=== PATIENT | female | born 1980 | race Caucasian/White ===

== ENCOUNTER 2016-12-13 16:29 | Inpatient (IN) | payer OTHER ==
[2016-12-13] MEDS ORDERED: Sodium Chloride 0.9% 1,000 ML PRIMARY IV ONE ×4 (16:44→21:27)
[2016-12-13] MEDS ORDERED: KETOROLAC 30 MG/1 ML VIAL IVP ONE (16:44)
[2016-12-13] MEDS ORDERED: ONDANSETRON 4 MG/2 ML VIAL IVP ONE (16:44)
--- NOTE | 2016-12-13 16:50 | PDOC ---
Gen Adult / Medical Screen HPI - General Chief Complaint: Genitourinary Complaint Stated Complaint: fever,chills, flank pain Date Seen by Provider: 12/13/16 Time Seen by Provider: 16:45 Source: POSITIVE: Patient Exam Limitations: POSITIVE: No limitations Nurse's Notes Reviewed & Considered: Yes - Indicators Temperature Between 95 and 101 Degrees: No (104) Respirations Between 12 and 20: Yes Blood Pressure Between 100-165 (sys) and 60-100 ([place]): Yes Pulse Range Between 60-105 (100 for age > 60 years): Yes Severe Pain (Greater than 5/10 Reported): No Chest or Abdominal Pain: Yes (abdominal cramping) Inability to Walk: No Pt Reports Active High Risk Cond. (TB/Hepatitis/HIV/Chemo): No Abnormal Mental Status: No - History of Present Illness Initial Comments: This is a very pleasant 36-year-old female who comes in today with a fever of 104, myalgias, nausea with vomiting. Patient's symptoms began on . Her initial symptoms were right shoulder pain exacerbation. She has chronic right shoulder pain from a injury. By night she had developed fever, myalgias, nausea vomiting and diarrhea. She was seen by her primary care physician earlier today and diagnosed with a urinary tract infection. She was started on Bactrim but has not taken her first dose yet. She comes in now because of worsening symptoms. In addition to the above she has headache, but denies sore throat, cough, shortness of breath, chest pain, no rashes. Body Location Affected: REPORTS: Abdomen Timing: REPORTS: Constant Duration: >24 hours Similar Symptoms Previously: No Recent Care Received: REPORTS: Recently Seen (Seen this morning by primary care , started on Bactrim DS but has not taken her first dose yet.) Any Prior Injuries Related to Current Complaint?: No - Patient Home Medications Home Medications: Home Medications Multivitamin Tab [ Plus Tab] 1 tab PO DAILY tab 08/28/14 Sertraline HCl [Zoloft] 1 tab PO DAILY #30 tab 11/01/16 Sulfamethoxazole/Trimethoprim [Sulfamethoxazole-Tmp Ds Tablet] 1 tab PO BID #14 tab 12/13/16 - Patient Allergies Allergies/Adverse Reactions: Allergies Allergy/AdvReac Type Severity Reaction Status Date / Time No Known Allergies Allergy Verified 12/13/16 16:38 Past Medical History - heen HEENT History: Denies History Cardiovascular History: Denies History Respiratory History: Denies History Gastrointestinal History: Denies History Genitourinary History: Denies History Endocrine History: Denies History Musculoskeletal History: Denies History Prosthesis or Implant: No Neurological History: Denies History Blood Disorders: Denies History Psychiatric History: Denies History History of Sexually Transmitted Diseases: No Cancer History: Denies History History of MDRO: No History of Other Communicable Diseases: No Alcohol Use: Rarely Substance Use Type: None Previous Surgical History: No Significant Family History: No pertinent family hx ROS - Limitations ROS Limitations: No Limitations Constitution: REPORTS: Chills, Fever Cardiovascular: REPORTS: Denies Cardiac Symptoms Respiratory: REPORTS: Denies Resp Symptoms Neurological: REPORTS: Headache Gastrointestinal: REPORTS: Abdominal Pain, Nausea, Vomitting, Diarrhea Endocrine: REPORTS: Fatigue Musculoskeletal: REPORTS: Back Pain (Bilateral CVA pain), Muscle Aches Genitourinary: REPORTS: Dysuria Eyes: REPORTS: Denies Symptoms ENT: REPORTS: Denies Symptoms Skin: REPORTS: Denies Skin Symptoms Lympathic: REPORTS: Denies Lympathic Symptoms Immunologic: POSITIVE: Denies Symptoms Psychiatric: POSITIVE: Denies Psych Symptoms Gen Adult/Medical Screen Exam - General Appearance General Appearance: POSITIVE: Alert, Cooperative, No Evidence of Trauma, Lethargic - HEENT HEENT: POSITIVE: Head Inspection Nml, Eyes Inspection Nml, Ears Inspection Nml, Nose Inspection Nml, Oral/Dental Inspect. Nml, Pharynx Inspect. Nml, PERRL, EOMI - Pupils Pupil Size: 4 mm: Bilateral - Neck Neck: POSITIVE: Normal Inspection, Thyroid Normal - Respiratory Respiratory: POSITIVE: No Respiratory Distress, Breath Sounds Normal, Chest Non- Tender - Cardiovascular Cardiovascular: POSITIVE: Regular Rate & Rhythm, No Murmur, No Gallop, PMI Normal - Abdomen Abdomen: Soft: (All Quadrants), Denies Tenderness: (LUQ), (RLQ), (LLQ), No Hepatomegaly: (All Quadrants), No Guarding: (All Quadrants), No Rebound: (All Quadrants), No Palpable Pulse: (All Quadrants), No Palpabale Mass: (All Quadrants), No Distention: (All Quadrants), No Rigidity: (All Quadrants), Tenderness Noted: (RUQ) - Back Back: POSITIVE: CVA Tenderness (Bilateral) - Neurological / Psychological Mental Status: POSITIVE: Mood Normal, Affect Normal Orientation: POSITIVE: Oriented x 3 - Skin Skin: POSITIVE: Normal Color, Dry, No Rash, Warmth - Extremities Extremity: Non-Tender: (All Extremities), Normal ROM: (All Extremities), Normal Inspection: (All Extremities) Gen Adlt/Medical Scrn Progress - Results Reviewed by me Xrays/CTs/US Reviewed by me: Yes Discussed with Radiologist: Yes Lab Results Reviewed: Yes Lab Results:: Laboratory Results 12/13/16 12/13/16 12/13/16 Range/Units 16:56 17:00 18:10 WBC 5.85 (4.8-10.8) 10^3/uL RBC 3.53 L (4.20-5.40) 10^6/uL Hgb 11.2 L (12.0-16.0) g/dL Hct 33.6 L (37.0-47.0) % MCV 95.2 (81-99) FL MCH 31.7 H (27-31) PG MCHC 33.3 (33-37) g/dL RDW Std Deviation 43.7 (39-50) fL RDW Coeff of [place] 13.1 (11.5-14.5) % Plt Count 204 (140-350) 10*3/uL MPV 9.3 (7.4-12.2) FL Immature Gran % (Auto) 0.2 (0-5) % Neut % (Auto) 73.8 (50-80) % Lymph % (Auto) 10.8 (10-50) % [place] % (Auto) 14.0 (5-15) % Eos % (Auto) 1.0 (0-8) % Baso % (Auto) 0.2 (0-1) % Immature Gran # (Auto) 0.01 10*3/UL Neut # (Auto) 4.32 10*3/UL Lymph # (Auto) 0.63 10*3/uL [place] # (Auto) 0.82 H (0.3-0.8) 10*3/UL Eos # (Auto) 0.06 10*3/UL Baso # (Auto) 0.01 10*3/UL WBC Morphology Comment Normal morphology (NORM) Plt Morphology Comment Normal morphology (NORM) RBC Morph Comment Normal morphology (NORM) Sodium 136 (135-145) meq/L Potassium 3.5 L (3.8-5.2) meq/L Chloride 103 (98-112) meq/L Carbon Dioxide 21 L (23-33) meq/L Anion Gap 12 (5-20) BUN 9 (7-22) mg/dL Creatinine 0.7 (0.50-1.20) mg/dL Estimated GFR > 60 (>60 ml/min/1.73m(2)) BUN/Creatinine Ratio 12.85 (6-20) Glucose 106 (78-110) mg/dL Calculated Osmolality 280.0 (267-292) mOsm/kg Lactic Acid 1.0 (0.70-2.10) MMOL/L Calcium 8.6 L (8.7-10.7) mg/dL Magnesium 1.6 (1.6-2.4) mg/dL Total Bilirubin 0.3 (0.3-1.2) mg/dL AST 39 (8-39) IU/L ALT 46 (9-52) IU/L Alkaline Phosphatase 65 (38-126) IU/L Total Protein 6.2 (6.1-8.0) g/dL Albumin 3.5 (3.5-4.8) g/dL Globulin 2.7 (2.50-4.10) g/dL Albumin/Globulin Ratio 1.20 L (1.3-2.0) mg/g Serum HCG, Qual Negative Ur Collection Type Voided specimen Urine Color Yellow Urine Clarity Cloudy (CLEAR) Urine pH 7.0 (5.0-8.5) Ur Specific [place] 1.010 (1.005-1.030) Urine Protein 100 (NEG) mg/dl Urine Glucose (UA) Negative (NEG) mg/dL Urine Ketones Negative (NEG) Urine Occult Blood Moderate H (NEG) Urine Nitrate Negative (NEG) Urine Bilirubin Negative (NEG) Urine Urobilinogen 0.2 (0.2) EU/dL Ur Leukocyte Esterase Moderate (NEG) Urine RBC 10-15 (NONE) /hpf Urine WBC 25-50 (NONE) Ur Squamous Epith Cells Few (NONE) Ur Renal Epithelial Cell None (NONE) Urine Crystals None Urine Bacteria None (NONE) Urine Casts None (NONE) Urine Mucus None (NONE) Urine Trichomonas None (NONE) Urine Yeast None (NONE) Ur Culture Indicated? Culture set - Patient's Progress Pain Medication Addressed: POSITIVE: Yes Re-Examine Time: 20:30 Status: POSITIVE: Improved MDM / ED Course: Patient was examined, an IV established with blood drawn and sent to the lab for studies, radiographic examinations were obtained. Patient received IV normal saline, Toradol, morphine, Zofran and 2 g of Rocephin. She also received oral Tylenol. Findings: CBC shows an unremarkable white count, metabolic panel shows potassium of 3.7, test is negative, chest x-ray shows a normal chest radiograph, CT scan of her abdomen shows stone in the right renal parenchyma that is punctate. Urinalysis shows 25-50 WBCs and moderate leukocyte esterase. Blood cultures are pending. Assessment: Fever with probable early pyelonephritis and nephrolithiasis. Plan: Admission for IV antibiotics. Patient Care Time - Estimated PCT Patient Care Time (In Minutes): 30 Vital Signs - Recent Vital Signs Vital Signs: Vital Signs (Last 8 hours) Temp Pulse Resp BP Pulse Ox 12/13/16 16:29 104.1 F H 100 18 140/65 97 - VS Reviewed Vital Signs Reviewed: Yes Discharge Clinical Impression: Urinary tract infectious disease Discharge Disposition: Admit to Inpatient Condition: Stable Date Decision to Admit to Inpatient: 12/13/16 Time Decision to Admit to Inpatient: 20:30
[2016-12-13 16:59] LABS: BASOPHILS # (AUTO) 0.01 10*3/UL; BASOPHILS % (AUTO) 0.2 % (0-1); EOSINOPHILS # (AUTO) 0.06 10*3/UL; HEMATOCRIT 33.6 % (37.0-47.0); HEMOGLOBIN 11.2 g/dL (12.0-16.0); LYMPHOCYTES # (AUTO) 0.63 10*3/uL; MEAN CORPUSCULAR HEMOGLOBIN 31.7 PG (27-31); MEAN CORPUSCULAR HGB CONC 33.3 g/dL (33-37); MEAN CORPUSCULAR VOLUME 95.2 FL (81-99); MEAN PLATELET VOLUME 9.3 FL (7.4-12.2); MONOCYTES # (AUTO) 0.82 10*3/UL (0.3-0.8); NEUTROPHILS # (AUTO) 4.32 10*3/UL; NEUTROPHILS % (AUTO) 73.8 % (50-80); RED BLOOD COUNT 3.53 10^6/uL (4.20-5.40)
[2016-12-13 17:01] LABS: PLATELET MORPHOLOGY COMMENT NORMAL MORPHOLOGY (NORM); RBC MORPHOLOGY COMMENT NORMAL MORPHOLOGY (NORM); WBC MORPHOLOGY COMMENT NORMAL MORPHOLOGY (NORM)
[2016-12-13] MEDS ORDERED: MORPHINE SULFATE 2 MG/1 ML IVP ONE ×2 (17:03→19:46)
[2016-12-13 17:24] LABS: BLOOD UREA NITROGEN 9 mg/dL (7-22); BUN/CREATININE RATIO 12.85 (6-20); CALCIUM 8.6 mg/dL (8.7-10.7); EST GLOMERULAR FILTRATION > 60 (>60 ml/min/1.73m(2)); MAGNESIUM 1.6 mg/dL (1.6-2.4); SERUM ALBUMIN 3.5 g/dL (3.5-4.8)
[2016-12-13 18:20] LABS: CLARITY,URINE CLOUDY (CLEAR); COLOR,URINE YELLOW; PROTEIN,URINE 100 mg/dl (NEG); URINE SAMPLE TYPE VOIDED SPECIMEN
[2016-12-13 18:21] LABS: BILIRUBIN,URINE NEGATIVE (NEG); GLUCOSE, URINE (UA) NEGATIVE (NEG); NITRATE,URINE NEGATIVE (NEG); OCCULT BLOOD,URINE MODERATE (NEG); UROBILINOGEN,URINE 0.2 EU/dL (0.2)
[2016-12-13 18:22] LABS: SQUAMOUS EPITHELIAL CELL,UR FEW; WBC,URINE 25-50
[2016-12-13] MEDS ORDERED: cefTRIAXone Inj 2 GM in Sodium Chloride 0.9% 100 ML IV ONE (18:51)
--- NOTE | 2016-12-13 20:12 | DI ---
XR CXR 2VW PA/LAT,12/13/2016 4:44 PM: Clinical History: Fever Previous Exam: None at this facility. Findings: PA and lateral views of the chest are obtained, and demonstrate clear lungs. The cardiomediastinum an d bony thorax are unremarkable. Impression: Normal chest.
--- NOTE | 2016-12-13 20:16 | DI ---
CT ABD W/WO CN AND PELVIS W/CN,12/13/2016 6:42 PM: Clinical History: Fever, hematuria and bilateral costovertebral angle pain. Previous Exam: None at this facility. Findings: Multiple helically acquired CT images are obtained through the abdomen and pelvis both before and aft er the intravenous administration of contrast, and demonstrate clear lung bases. The cardiomediastinum is unremarkable. The liver, spleen, pancreas, adrenals and left kidney are unremarkable. There is a punctate parenchym al stone within the right kidney, and the right kidney is in a transverse lie. The gallbladder is decompressed, and therefore not well evaluated. There is a large amount of dried stool throughout the colon. There is no retroperitoneal nor mesenteric lymphadenopathy. The uterus, ovaries and urinary bladder are unremarkable. There is some free fluid within the deep pelvis. Impression: 1. No obstructive uropathy. 2. Punctate stone within the right renal parenchyma. 3. Free fluid within the deep pelvis. This is a nonspecific finding, and is most likely secondary to a gynecological source.
[2016-12-13] MEDS ORDERED: ACETAMINOPHEN 500 MG TABLET PO ONE (20:57)
[2016-12-13] MEDS ORDERED: LIDOCAINE W/ SODIUM BICARB 0.5 ML SYR SUBD PRN (21:27)
--- NOTE | 2016-12-13 22:06 | PDOC ---
History and Physical - History of Present Illness Date and Time of Service: 12/13/2016 10 PM Chief Complaint: Fever, back and body aches and chills of few days duration History of Present Illness: This is a 36 years old female with no significant past medical history who came into the hospital with history of fever, body aches and nausea and vomiting of few days duration. Her symptoms she said started last week started with right shoulder and neck pain she thought that it was musculoskeletal on Tuesday she took some Percocet and Xanax. The next day she did vomit did have body aches and did not have a good appetite. She went to her primary who prescribed Bactrim however she didn't have the time to pick it up and she came into the ER because she wasn't feeling well feeling hot and chills and evaluation suggested pyelonephritis she was given fluids and antibiotics and was admitted. She did report the mid back pain and some radiation to the right flank. She said she has only dysuria when she wipes but otherwise no frequency or dysuria other than what she described. There is no hematuria. No history of previous urinary tract infections. Past Medical History Medical History: Depression Family History: Reviewed an Not Pertinent Past Social History: Doesn't smoke, doesn't drink no drugs. 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[employer] Tobacco Use: Never Smoker Substance Use Type: None Alcohol Use: Occasionally Medication / Allergies Home Medications: Home Medications Medication Instructions Recorded Confirmed Type Multivitamin Tab 1 tab PO DAILY tab 08/28/14 12/13/16 History [ Plus Tab] Sertraline HCl [Zoloft] 1 tab PO DAILY #30 tab 11/01/16 12/13/16 Clinic Sulfamethoxazole/Trimethoprim 1 tab PO BID #14 tab 12/13/16 12/13/16 Clinic [Sulfamethoxazole-Tmp Ds Tablet] Allergies/Adverse Reactions: Allergies Allergy/AdvReac Type Severity Reaction Status Date / Time No Known Allergies Allergy Verified 12/14/16 07:15 Review of Systems - Review of Systems All Systems: Reviewed & No Additional Complaints Except as Stated Exam - Vitals Vital Signs: Vital Signs Temperature 103.0 F Temperature Source Oral Pulse Rate [Pulse Oximeter 91 Right] Pulse Rate 93 Respiratory Rate 16 Blood Pressure [Left Arm] 121/57 Blood Pressure 112/51 Pulse Ox 99 Oxygen Delivery Method Room Air Height 5 ft 5 in Weight 153 lb 6.4 oz - General Additional General Exam Details: Initially she was dry heaving, looks sick - Head Head Exam: POSITIVE: Normal Inspection - Eye Eye Exam: POSITIVE: Normal Appearance - ENT ENT Exam: POSITIVE: Mucous Membranes Dry - Neck Neck Exam: POSITIVE: Normal Inspection - Respiratory Respiratory Exam: POSITIVE: Clear to Auscultation - Bilaterally - Cardiovascular Cardiovascular Exam: POSITIVE: RRR - GI/Abdominal GI/Abdominal Exam: POSITIVE: Normal Bowel Sounds, Non Tender, Non Distended, Soft Additional GI/Abdominal Exam Details: CVA tenderness noted especially on the right side, some minimal tenderness in the right flank - Rectal Rectal Exam: POSITIVE: Deferred - External Exam: POSITIVE: Deferred - Extremities Extremities Exam: POSITIVE: Normal Inspection - Back Back Exam: POSITIVE: Normal Inspection - Neurological Neurological Exam: POSITIVE: Alert, Oriented x 3, CN II-XII Intact - Psychiatric Psychiatric Exam: POSITIVE: Normal Affect - Integumentary Integumentary Exam: POSITIVE: Warm Results - Labs CBC and BMP: 12/14/16 05:08 12/14/16 05:08 - Imaging Status: Report Reviewed by Me (Chest x-ray is negative, CT showed punctuate calcification in the right kidney) Assessment and Plan - Patient Problems (1) Sepsis Current Visit: Yes Status: Acute Comment: This is based on the fever and the pulse rate more than 90 when she came in, with a presumed urinary tract infection. We gave her a bolus of fluid continue with fluid and will continue antibiotics will put her on cefepime because of sepsis (2) Pyelonephritis Current Visit: Yes Status: Acute Comment: This is the likely the cause of sepsis, continue with fluid and IV antibiotics will wait for culture results
[2016-12-13] MEDS: Cefepime Inj 1 GM in Sodium Chloride 0.9% 100 ML IV SCH (22:54)
[2016-12-13] MEDS: NORMAL SALINE 10 ML SYRINGE FLUSH IVP PRN (22:54)
[2016-12-13] MEDS: KETOROLAC 30 MG/1 ML VIAL IVP PRN (22:54)
[2016-12-14] MEDS: MORPHINE SULFATE 2 MG/1 ML IVP PRN ×2 (03:49→07:52)
[2016-12-14] MEDS: NORMAL SALINE 10 ML SYRINGE FLUSH IVP PRN ×4 (03:49→11:41)
[2016-12-14] MEDS: KETOROLAC 30 MG/1 ML VIAL IVP PRN ×2 (05:10→11:41)
[2016-12-14] MEDS: Cefepime Inj 1 GM in Sodium Chloride 0.9% 100 ML IV SCH ×3 (05:10→22:16)
[2016-12-14] MEDS: ACETAMINOPHEN 325 MG TABLET PO PRN (05:16)
[2016-12-14 05:22] LABS: BASOPHILS # (AUTO) 0.01 10*3/UL; BASOPHILS % (AUTO) 0.2 % (0-1); EOSINOPHILS # (AUTO) 0.09 10*3/UL; EOSINOPHILS % (AUTO) 1.4 % (0-8); HEMATOCRIT 32.2 % (37.0-47.0); HEMOGLOBIN 10.4 g/dL (12.0-16.0); LYMPHOCYTES # (AUTO) 1.23 10*3/uL; MEAN CORPUSCULAR HGB CONC 32.3 g/dL (33-37); MEAN CORPUSCULAR VOLUME 96.1 FL (81-99); MEAN PLATELET VOLUME 9.3 FL (7.4-12.2); MONOCYTES # (AUTO) 1.09 10*3/UL (0.3-0.8); MONOCYTES % (AUTO) 17.1 % (5-15); NEUTROPHILS # (AUTO) 3.94 10*3/UL; NEUTROPHILS % (AUTO) 61.7 % (50-80); RED BLOOD COUNT 3.35 10^6/uL (4.20-5.40)
[2016-12-14 05:25] LABS: PLATELET MORPHOLOGY COMMENT NORMAL MORPHOLOGY (NORM); RBC MORPHOLOGY COMMENT NORMAL MORPHOLOGY (NORM); WBC MORPHOLOGY COMMENT NORMAL MORPHOLOGY (NORM)
[2016-12-14 05:31] LABS: BLOOD UREA NITROGEN 6 mg/dL (7-22); CALCIUM 7.7 mg/dL (8.7-10.7); EST GLOMERULAR FILTRATION > 60 (>60 ml/min/1.73m(2))
[2016-12-14] MEDS: Sertraline Tab 50 MG TAB PO SCH (08:00)
--- NOTE | 2016-12-14 08:13 | PDOC(PROG) ---
Date and Time of Service: 12/14/2016 8:10 AM Interval History: Subjective Feels better than when she came in, still sometimes have the chills did have some mild nausea earlier overall she feels about 50% better compared to when she came in. Objective : Data - Labs CBC and BMP: 12/14/16 05:08 12/14/16 05:08 Labs - Last 24 Hours: Laboratory Results 12/14/16 Range/Units 05:08 WBC 6.38 (4.8-10.8) 10^3/uL RBC 3.35 L (4.20-5.40) 10^6/uL Hgb 10.4 L (12.0-16.0) g/dL Hct 32.2 L (37.0-47.0) % MCV 96.1 (81-99) FL MCH 31.0 (27-31) PG MCHC 32.3 L (33-37) g/dL RDW Std Deviation 44.3 (39-50) fL RDW Coeff of [place] 13.1 (11.5-14.5) % Plt Count 172 (140-350) 10*3/uL MPV 9.3 (7.4-12.2) FL Immature Gran % (Auto) 0.3 (0-5) % Neut % (Auto) 61.7 (50-80) % Lymph % (Auto) 19.3 (10-50) % [place] % (Auto) 17.1 H (5-15) % Eos % (Auto) 1.4 (0-8) % Baso % (Auto) 0.2 (0-1) % Immature Gran # (Auto) 0.02 10*3/UL Neut # (Auto) 3.94 10*3/UL Lymph # (Auto) 1.23 10*3/uL [place] # (Auto) 1.09 H (0.3-0.8) 10*3/UL Eos # (Auto) 0.09 10*3/UL Baso # (Auto) 0.01 10*3/UL WBC Morphology Comment Normal morphology (NORM) Plt Morphology Comment Normal morphology (NORM) RBC Morph Comment Normal morphology (NORM) Sodium 139 (135-145) meq/L Potassium 3.9 (3.8-5.2) meq/L Chloride 109 (98-112) meq/L Carbon Dioxide 23 (23-33) meq/L Anion Gap 7 (5-20) BUN 6 L (7-22) mg/dL Creatinine 0.8 (0.50-1.20) mg/dL Estimated GFR > 60 (>60 ml/min/1.73m(2)) BUN/Creatinine Ratio 7.50 (6-20) Glucose 114 H (78-110) mg/dL Calculated Osmolality 286.0 (267-292) mOsm/kg Calcium 7.7 L (8.7-10.7) mg/dL Objective : Exam - General General Appearance: No Acute Distress, Cooperative - Head Head Exam: Normal Inspection, Atraumatic - Eye Eye Exam: Normal Appearance - ENT ENT Exam: Normal Exam - Neck Neck Exam: Normal Inspection - Respiratory Respiratory Exam: Clear to Auscultation - Bilaterally - Cardiovascular Cardiovascular Exam: RRR - GI/Abdominal GI/Abdominal Exam: Normal Bowel Sounds, Non Distended, Soft Additional GI/Abdominal Exam Details: Some mild costovertebral angle tenderness, mild tenderness on the right flank. - Rectal Rectal Exam: Deferred - External Exam: Deferred - Extremities Extremities Exam: Normal Inspection - Back Back Exam: Normal Inspection - Neurological Neurological Exam: Alert, Oriented x 3, CN II-XII Intact, Speech Intact / Clear , Moves All Extremities Equally - Psychiatric Psychiatric Exam: Normal Affect - Integumentary Integumentary Exam: Normal Color Assessment and Plan - Patient Problems (1) Sepsis Current Visit: Yes Status: Acute Comment: This is improved , continue current antibiotic and start cutting back on the IV fluid. (2) Pyelonephritis Current Visit: Yes Status: Acute Comment: Continue same antibiotics will wait for culture results.
[2016-12-14] MEDS ORDERED: PANTOPRAZOLE 40 MG TABLET PO SCH ×2 (08:15→21:00)
[2016-12-14] MEDS ORDERED: PSYLLIUM SEED 1 EACH PACKET PO PRN (09:00)
[2016-12-14] MEDS: oxyCODONE-ACETAMINOPHEN 5-325 TAB PO PRN ×3 (11:42→20:33)
[2016-12-14] MEDS: PANTOPRAZOLE 40 MG TABLET PO SCH (20:33)
[2016-12-14] MEDS ORDERED: Sodium Chloride 0.9% 100 ML IV ONE (22:07)
[2016-12-15] MEDS: oxyCODONE-ACETAMINOPHEN 5-325 TAB PO PRN ×4 (02:22→20:50)
[2016-12-15] MEDS ORDERED: Sodium Chloride 0.9% 100 ML IV ONE (05:07)
[2016-12-15] MEDS: Cefepime Inj 1 GM in Sodium Chloride 0.9% 100 ML IV SCH ×2 (05:23→14:18)
[2016-12-15 05:38] LABS: BASOPHILS # (AUTO) 0.01 10*3/UL; BASOPHILS % (AUTO) 0.2 % (0-1); EOSINOPHILS # (AUTO) 0.09 10*3/UL; EOSINOPHILS % (AUTO) 1.4 % (0-8); HEMATOCRIT 30.4 % (37.0-47.0); HEMOGLOBIN 9.8 g/dL (12.0-16.0); LYMPHOCYTES # (AUTO) 1.22 10*3/uL; MEAN CORPUSCULAR HEMOGLOBIN 31.2 PG (27-31); MEAN CORPUSCULAR HGB CONC 32.2 g/dL (33-37); MEAN CORPUSCULAR VOLUME 96.8 FL (81-99); MEAN PLATELET VOLUME 9.6 FL (7.4-12.2); MONOCYTES # (AUTO) 0.86 10*3/UL (0.3-0.8); MONOCYTES % (AUTO) 13.3 % (5-15); NEUTROPHILS # (AUTO) 4.26 10*3/UL; NEUTROPHILS % (AUTO) 65.9 % (50-80); RED BLOOD COUNT 3.14 10^6/uL (4.20-5.40)
[2016-12-15 05:40] LABS: PLATELET MORPHOLOGY COMMENT NORMAL MORPHOLOGY (NORM); RBC MORPHOLOGY COMMENT NORMAL MORPHOLOGY (NORM); WBC MORPHOLOGY COMMENT NORMAL MORPHOLOGY (NORM)
[2016-12-15 05:50] LABS: BLOOD UREA NITROGEN 8 mg/dL (7-22); BUN/CREATININE RATIO 11.42 (6-20); CALCIUM 7.4 mg/dL (8.7-10.7); EST GLOMERULAR FILTRATION > 60 (>60 ml/min/1.73m(2))
[2016-12-15] MEDS ORDERED: PANTOPRAZOLE 40 MG TABLET PO SCH (07:00)
[2016-12-15] MEDS: Sertraline Tab 50 MG TAB PO SCH (08:07)
[2016-12-15] MEDS: PANTOPRAZOLE 40 MG TABLET PO SCH (08:08)
--- NOTE | 2016-12-15 08:17 | PDOC(PROG) ---
Date and Time of Service: 12/15/2016 8:17 AM Interval History: Subjective Complain from abdominal pain now mainly in the epigastric area, which is also tender she did not have a bowel movement yet last time she had a bowel movement she said it was Tuesday. She is passing gas. Objective : Data - Labs CBC and BMP: 12/15/16 05:31 12/15/16 05:31 Labs - Last 24 Hours: Laboratory Results 12/15/16 Range/Units 05:31 WBC 6.46 (4.8-10.8) 10^3/uL RBC 3.14 L (4.20-5.40) 10^6/uL Hgb 9.8 L (12.0-16.0) g/dL Hct 30.4 L (37.0-47.0) % MCV 96.8 (81-99) FL MCH 31.2 H (27-31) PG MCHC 32.2 L (33-37) g/dL RDW Std Deviation 45.4 (39-50) fL RDW Coeff of [place] 13.3 (11.5-14.5) % Plt Count 175 (140-350) 10*3/uL MPV 9.6 (7.4-12.2) FL Immature Gran % (Auto) 0.3 (0-5) % Neut % (Auto) 65.9 (50-80) % Lymph % (Auto) 18.9 (10-50) % [place] % (Auto) 13.3 (5-15) % Eos % (Auto) 1.4 (0-8) % Baso % (Auto) 0.2 (0-1) % Immature Gran # (Auto) 0.02 10*3/UL Neut # (Auto) 4.26 10*3/UL Lymph # (Auto) 1.22 10*3/uL [place] # (Auto) 0.86 H (0.3-0.8) 10*3/UL Eos # (Auto) 0.09 10*3/UL Baso # (Auto) 0.01 10*3/UL WBC Morphology Comment Normal morphology (NORM) Plt Morphology Comment Normal morphology (NORM) RBC Morph Comment Normal morphology (NORM) Sodium 136 (135-145) meq/L Potassium 3.7 L (3.8-5.2) meq/L Chloride 108 (98-112) meq/L Carbon Dioxide 22 L (23-33) meq/L Anion Gap 6 (5-20) BUN 8 (7-22) mg/dL Creatinine 0.7 (0.50-1.20) mg/dL Estimated GFR > 60 (>60 ml/min/1.73m(2)) BUN/Creatinine Ratio 11.42 (6-20) Glucose 117 H (78-110) mg/dL Calculated Osmolality 280.0 (267-292) mOsm/kg Calcium 7.4 L (8.7-10.7) mg/dL Objective : Exam - General General Appearance: No Acute Distress, Cooperative, Thin - Head Head Exam: Normal Inspection - Eye Eye Exam: Normal Appearance - ENT ENT Exam: Normal Exam - Neck Neck Exam: Normal Inspection - Respiratory Respiratory Exam: Clear to Auscultation - Bilaterally - Cardiovascular Cardiovascular Exam: RRR - GI/Abdominal GI/Abdominal Exam: Normal Bowel Sounds Additional GI/Abdominal Exam Details: Abdomen is mildly distended there is tenderness in the epigastric area abdomen is soft. - Rectal Rectal Exam: Deferred - External Exam: Deferred - Extremities Extremities Exam: Normal Inspection - Back Back Exam: Normal Inspection - Neurological Neurological Exam: Alert, Oriented x 3, CN II-XII Intact, Moves All Extremities Equally - Psychiatric Psychiatric Exam: Normal Affect Assessment and Plan - Patient Problems (1) Sepsis Current Visit: Yes Status: Acute Comment: This is resolved (2) Pyelonephritis Current Visit: Yes Status: Acute Comment: The culture is growing gram-negative bacilli in the urine continue current antibiotics, hopefully will have identification today. (3) Abdominal pain Current Visit: Yes Status: Acute Comment: She is having more no abdominal pain more in the epigastric area, we DC 'd the Toradol last night I did talk to her last night and offered a CT she wanted to wait until today and since she continued to complain from same pain I think will do a CT of her abdomen today. We'll check a lipase level and LFT
[2016-12-15 10:48] LABS: SERUM ALBUMIN 2.6 g/dL (3.5-4.8)
[2016-12-15] MEDS: Sodium Chloride 0.9% 1,000 ML PRIMARY IV SCH ×2 (11:37→21:00)
[2016-12-15] MEDS: ONDANSETRON 4 MG/2 ML VIAL IVP PRN ×2 (12:56→21:06)
--- NOTE | 2016-12-15 15:33 | CONSULT ---
Consult Note - Consult Consult Date: 12/15/16 Reason for Consult: PreOp Consulation : General Surgery Requesting Physician: Dr. Hicks Primary Care Provider: Ariel Maurer MD - History of Present Illness History of Present Illness: This 28-year-old female who is been a 2 days ago with what appeared to be pyelonephritis. She had a CT scan that was consistent with this. In addition no other intra-abdominal pathology. They saw what appeared to be a normal appendix. Patient subsequently has developed mid epigastric pain. Subsequent CT scan shows that she has marked ascites. There is no evidence of free air. Appendix still does not appear to be the problem. Patient has had perinephric stranding. Patient states that she is still passing gas. Past Medical History Medical History: Depression Family History: Reviewed an Not Pertinent Past Social History: Doesn't smoke, doesn't drink no drugs. 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 [employer] Tobacco Use: Never Smoker Substance Use Type: None Alcohol Use: Occasionally Medication / Allergies Home Medications: Home Medications Medication Instructions Recorded Confirmed Type Multivitamin Tab 1 tab PO DAILY tab /12/0712/13/16 History [ Plus Tab] Sertraline HCl [Zoloft] 1 tab PO DAILY #30 tab 11/01/16 12/13/16 Clinic Sulfamethoxazole/Trimethoprim 1 tab PO BID #14 tab 12/13/16 12/13/16 Clinic [Sulfamethoxazole-Tmp Ds Tablet] Allergies/Adverse Reactions: Allergies Allergy/AdvReac Type Severity Reaction Status Date / Time No Known Allergies Allergy Verified 12/15/16 06:27 Exam - Vitals Vital Signs: Vital Signs Temperature 98.3 F Temperature Source Temporal Artery Scan Pulse Rate [Pulse Oximeter 61 Right] Pulse Rate 93 Respiratory Rate 16 Blood Pressure [Left Arm] 111/71 Blood Pressure 112/51 Pulse Ox 92 Oxygen Flow Rate 1 Oxygen Delivery Method Room Air Height 5 ft 5 in Weight 74.072 kg - General General Appearance: POSITIVE: Cooperative, Mild Distress - Eye Eye Exam: POSITIVE: PERRL, EOMI - GI/Abdominal GI/Abdominal Exam: POSITIVE: Firm, Distended, Guarding Results - Labs CBC and BMP: 12/15/16 05:31 12/15/16 05:31 Labs - Last 24 Hours: Laboratory Results 12/15/16 Range/Units 05:31 WBC 6.46 (4.8-10.8) 10^3/uL RBC 3.14 L (4.20-5.40) 10^6/uL Hgb 9.8 L (12.0-16.0) g/dL Hct 30.4 L (37.0-47.0) % MCV 96.8 (81-99) FL MCH 31.2 H (27-31) PG MCHC 32.2 L (33-37) g/dL RDW Std Deviation 45.4 (39-50) fL RDW Coeff of [place] 13.3 (11.5-14.5) % Plt Count 175 (140-350) 10*3/uL MPV 9.6 (7.4-12.2) FL Immature Gran % (Auto) 0.3 (0-5) % Neut % (Auto) 65.9 (50-80) % Lymph % (Auto) 18.9 (10-50) % Piatt % (Auto) 13.3 (5-15) % Eos % (Auto) 1.4 (0-8) % Baso % (Auto) 0.2 (0-1) % Immature Gran # (Auto) 0.02 10*3/UL Neut # (Auto) 4.26 10*3/UL Lymph # (Auto) 1.22 10*3/uL Piatt # (Auto) 0.86 H (0.3-0.8) 10*3/UL Eos # (Auto) 0.09 10*3/UL Baso # (Auto) 0.01 10*3/UL WBC Morphology Comment Normal morphology (NORM) Plt Morphology Comment Normal morphology (NORM) RBC Morph Comment Normal morphology (NORM) Sodium 136 (135-145) meq/L Potassium 3.7 L (3.8-5.2) meq/L Chloride 108 (98-112) meq/L Carbon Dioxide 22 L (23-33) meq/L Anion Gap 6 (5-20) BUN 8 (7-22) mg/dL Creatinine 0.7 (0.50-1.20) mg/dL Estimated GFR > 60 (>60 ml/min/1.73m(2)) BUN/Creatinine Ratio 11.42 (6-20) Glucose 117 H (78-110) mg/dL Calculated Osmolality 280.0 (267-292) mOsm/kg Calcium 7.4 L (8.7-10.7) mg/dL Total Bilirubin 0.3 (0.3-1.2) mg/dL Conjugated Bilirubin 0.00 (0.0-0.3) MG/DL Unconjugated Bilirubin 0 (0.0-1.1) mg/dL AST 84 H (8-39) IU/L ALT 88 H D (9-52) IU/L Alkaline Phosphatase 106 (38-126) IU/L Total Protein 5.5 L (6.1-8.0) g/dL Albumin 2.6 L (3.5-4.8) g/dL Lipase 28 (23-300) IU/L Assessment and Plan - Patient Problems (1) Abdominal pain Current Visit: Yes Status: Acute (2) Pyelonephritis Current Visit: Yes Status: Acute - Assessment / Plan Additional Assessment/Plan Details: Paraspinous really unsure why patient has developed ascites. The differential diagnosis does include a perforated peptic ulcer that has sealed itself. There could be a duodenal perforation. Patient still could have a missed appendicitis its retroperitoneal. Patient can at peritonitis secondary to her pyelonephritis. Also possibility of a ruptured ureter still has not been ruled out. At this point I switched her broad-spectrum antibiotic. I would make her nothing by mouth. And keep her on 40 mg of IV Protonix twice a day. Patient reevaluated in the a.m. If we still cannot get in any better patient may need a diagnostic laparoscopy.
--- NOTE | 2016-12-15 16:00 | DI ---
CT ABD W/CN AND PELVIS W/CN,12/15/2016 8:12 AM: Clinical History: Worsening abdominal pain. Previous Exam: December 23, 2016 Findings: Multiple helically acquired CT images are obtained through the abdomen and pelvis following the admin istration of intravenous contrast, and demonstrate new bilateral pleural effusions worse on the right than the left. There is some mild subsegmental atelectasis. There are new findings within the liver most consistent with periportal edema. The left kidney is normal. There is some heterogeneity of the right kidney consistent with pyelonephr itis. The spleen and pancreas are unremarkable. There is a small umbilical hernia. Impression: 1. Mild heterogeneity of the right kidney most consistent with pyelonephritis. 2. New large amount of ascites and periportal edema. 3. New bilateral pleural effusions larger on the right than the left. This confluence of findings is concerning for peritonitis and pyelonephritis.
[2016-12-15] MEDS: Piperacillin/Tazobactam Inj 3.375 GM in Sodium Chloride 0.9% 100 ML IV SCH ×2 (16:17→20:51)
[2016-12-15] MEDS: Pantoprazole Inj 40 MG in Normal Saline Flush 10 ML IVP SCH (20:51)
--- NOTE | 2016-12-15 22:35 | DI ---
US ABDOMEN LIMITED,12/15/2016 10:30 AM: Clinical History: New epigastric pain. Previous Exam: CT performed on the same date. Findings: Multiple grayscale and color Doppler sonographic images were obtained. I was present during the perfo rmance of this examination. The pancreas was normal. There is a large amount of abdominal ascites, and the liver was slightly enlarged measuring 20.1 cm i n long axis. The gallbladder wall measured 5 mm. There was diffuse epigastric pain making evaluation of a sonograp hic Garcia's sign very difficult. The common bile duct was prominent measuring 7 mm. The right kidney measured 12.4 cm in length with a normal sonographic appearance. Impression: 1. Diffuse ascites. 2. Mild prominence of the common bile duct without evidence of stones. 3. Thickened gallbladder wall is more likely due to the presence of ascites and 2 primary biliary pat hology.
[2016-12-16] MEDS: Sodium Chloride 0.9% 1,000 ML PRIMARY IV SCH ×2 (02:40→14:44)
[2016-12-16] MEDS: Piperacillin/Tazobactam Inj 3.375 GM in Sodium Chloride 0.9% 100 ML IV SCH ×3 (03:30→14:43)
[2016-12-16] MEDS: ONDANSETRON 4 MG/2 ML VIAL IVP PRN (04:40)
[2016-12-16] MEDS: oxyCODONE-ACETAMINOPHEN 5-325 TAB PO PRN (04:40)
[2016-12-16 05:40] LABS: HEMATOCRIT 28.8 % (37.0-47.0); HEMOGLOBIN 9.4 g/dL (12.0-16.0); MEAN CORPUSCULAR HEMOGLOBIN 31.3 PG (27-31); MEAN CORPUSCULAR HGB CONC 32.6 g/dL (33-37); MEAN PLATELET VOLUME 9.4 FL (7.4-12.2)
[2016-12-16 05:52] LABS: BLOOD UREA NITROGEN 8 mg/dL (7-22); BUN/CREATININE RATIO 13.33 (6-20); CALCIUM 7.3 mg/dL (8.7-10.7); EST GLOMERULAR FILTRATION > 60 (>60 ml/min/1.73m(2)); SERUM ALBUMIN 2.6 g/dL (3.5-4.8)
[2016-12-16 05:54] LABS: BAND NEUTROPHILS % 2 % (0-10); BASOPHILS % (MANUAL) 0 % (0-1); EOSINOPHILS % (MANUAL) 0 % (0-8); LYMPHOCYTES % (MANUAL) 21 % (10-50); MONOCYTES % (MANUAL) 0 % (0-12); NEUTROPHILS % (MANUAL) 77 % (50-80); PLATELET MORPHOLOGY COMMENT NORMAL MORPHOLOGY (NORM); RBC MORPHOLOGY COMMENT NORMAL MORPHOLOGY (NORM); WBC MORPHOLOGY COMMENT NORMAL MORPHOLOGY (NORM)
[2016-12-16 08:22] VITALS: RESP 18
--- NOTE | 2016-12-16 09:18 | PDOC(PROG) ---
Date and Time of Service: at 9:15 AM on 12/17/2015 Interval History: Patient states that she feels about 25% better. She still pain when she ambulates. Patient did get up and take a shower this morning Objective : Data - Labs CBC and BMP: 12/16/16 05:33 12/16/16 05:33 Labs - Last 24 Hours: Laboratory Results 12/15/16 12/16/16 Range/Units 05:31 05:33 WBC 5.81 (4.8-10.8) 10^3/uL RBC 3.00 L (4.20-5.40) 10^6/uL Hgb 9.4 L (12.0-16.0) g/dL Hct 28.8 L (37.0-47.0) % MCV 96.0 (81-99) FL MCH 31.3 H (27-31) PG MCHC 32.6 L (33-37) g/dL RDW Std Deviation 44.1 (39-50) fL RDW Coeff of [place] 13.0 (11.5-14.5) % Plt Count 216 (140-350) 10*3/uL MPV 9.4 (7.4-12.2) FL Neutrophils % (Manual) 77 (50-80) % Band Neutrophils % 2 (0-10) % Lymphocytes % (Manual) 21 (10-50) % Monocytes % (Manual) 0 (0-12) % Eosinophils % (Manual) 0 (0-8) % Basophils % (Manual) 0 (0-1) % Metamyelocytes % Not Reportable Myelocytes % Not Reportable Promyelocytes % Not Reportable Blast Cells Not Reportable WBC Morphology Comment Normal morphology (NORM) Plt Morphology Comment Normal morphology (NORM) RBC Morph Comment Normal morphology (NORM) Sodium 140 (135-145) meq/L Potassium 3.6 L (3.8-5.2) meq/L Chloride 109 (98-112) meq/L Carbon Dioxide 22 L (23-33) meq/L Anion Gap 9 (5-20) BUN 8 (7-22) mg/dL Creatinine 0.6 (0.50-1.20) mg/dL Estimated GFR > 60 (>60 ml/min/1.73m(2)) BUN/Creatinine Ratio 13.33 (6-20) Glucose 84 (78-110) mg/dL Calculated Osmolality 286.0 (267-292) mOsm/kg Calcium 7.3 L (8.7-10.7) mg/dL Total Bilirubin 0.3 0.4 (0.3-1.2) mg/dL Conjugated Bilirubin 0.00 (0.0-0.3) MG/DL Unconjugated Bilirubin 0 (0.0-1.1) mg/dL AST 84 H 41 H (8-39) IU/L ALT 88 H D 84 H (9-52) IU/L Alkaline Phosphatase 106 97 (38-126) IU/L Total Protein 5.5 L 5.3 L (6.1-8.0) g/dL Albumin 2.6 L 2.6 L (3.5-4.8) g/dL Globulin 2.7 (2.50-4.10) g/dL Albumin/Globulin Ratio 0.90 L (1.3-2.0) mg/g - Vital Signs Vital Signs and I&O: Vital Signs - Last Taken Temperature 98.3 F 12/16/16 08:19 Pulse Rate 58 L 12/16/16 08:19 Respiratory Rate 18 12/16/16 08:19 Blood Pressure 108/60 12/16/16 08:19 Pulse Ox 95 12/16/16 08:19 Intake and Output (24hr x 4 totals) 12/14/16 12/15/16 12/16/16 12/17/16 05:59 05:59 05:59 05:59 Intake Total 4268 1800 2632 Output Total 1450 1725 1050 50 Balance 2818 75 1582 -50 Objective : Exam - General General Appearance: No Acute Distress, Cooperative - GI/Abdominal GI/Abdominal Exam: Normal Bowel Sounds, Non Distended, Soft Additional GI/Abdominal Exam Details: Patient says some epigastric tenderness but I think on exam it's less than was yesterday. Her generalized abdominal pain seems of gone away. I do not really get any more rebound. Assessment and Plan - Patient Problems (1) Abdominal pain Current Visit: Yes Status: Acute (2) Pyelonephritis Current Visit: Yes Status: Acute - Assessment / Plan Additional Assessment/Plan Details: Patient overall seems to begin better with this change of antibiotics to Zosyn. I like to keep her in the hospital for more IV antibiotics. She may be on water. She'll need to have repeat labs in the morning.
[2016-12-16] MEDS: Sertraline Tab 50 MG TAB PO SCH (09:34)
[2016-12-16] MEDS: Pantoprazole Inj 40 MG in Normal Saline Flush 10 ML IVP SCH (09:35)
[2016-12-16] MEDS: ACETAMINOPHEN 325 MG TABLET PO PRN (10:30)
[2016-12-16] MEDS ORDERED: FUROSEMIDE 10 MG/1 ML - 4 ML IVP ONE (10:49)
[2016-12-16 11:58] VITALS: TEMP 97.7
[2016-12-16] MEDS ORDERED: HYDROmorphone 2 MG/1 ML IVP PRN (12:01)
--- NOTE | 2016-12-16 12:43 | PDOC(PROG) ---
Interval History: Patient looks very ill she can barely turn in bed without experience abdominal pain or generalized malaise she is experiencing nausea with vomiting looks fluid overloaded. Denies chest pain positive for nausea and vomiting Objective : Data - Labs CBC and BMP: 12/16/16 05:33 12/16/16 05:33 Labs - Last 24 Hours: Laboratory Results 12/16/16 Range/Units 05:33 WBC 5.81 (4.8-10.8) 10^3/uL RBC 3.00 L (4.20-5.40) 10^6/uL Hgb 9.4 L (12.0-16.0) g/dL Hct 28.8 L (37.0-47.0) % MCV 96.0 (81-99) FL MCH 31.3 H (27-31) PG MCHC 32.6 L (33-37) g/dL RDW Std Deviation 44.1 (39-50) fL RDW Coeff of [place] 13.0 (11.5-14.5) % Plt Count 216 (140-350) 10*3/uL MPV 9.4 (7.4-12.2) FL Neutrophils % (Manual) 77 (50-80) % Band Neutrophils % 2 (0-10) % Lymphocytes % (Manual) 21 (10-50) % Monocytes % (Manual) 0 (0-12) % Eosinophils % (Manual) 0 (0-8) % Basophils % (Manual) 0 (0-1) % Metamyelocytes % Not Reportable Myelocytes % Not Reportable Promyelocytes % Not Reportable Blast Cells Not Reportable WBC Morphology Comment Normal morphology (NORM) Plt Morphology Comment Normal morphology (NORM) RBC Morph Comment Normal morphology (NORM) Sodium 140 (135-145) meq/L Potassium 3.6 L (3.8-5.2) meq/L Chloride 109 (98-112) meq/L Carbon Dioxide 22 L (23-33) meq/L Anion Gap 9 (5-20) BUN 8 (7-22) mg/dL Creatinine 0.6 (0.50-1.20) mg/dL Estimated GFR > 60 (>60 ml/min/1.73m(2)) BUN/Creatinine Ratio 13.33 (6-20) Glucose 84 (78-110) mg/dL Calculated Osmolality 286.0 (267-292) mOsm/kg Calcium 7.3 L (8.7-10.7) mg/dL Total Bilirubin 0.4 (0.3-1.2) mg/dL AST 41 H (8-39) IU/L ALT 84 H (9-52) IU/L Alkaline Phosphatase 97 (38-126) IU/L Total Protein 5.3 L (6.1-8.0) g/dL Albumin 2.6 L (3.5-4.8) g/dL Globulin 2.7 (2.50-4.10) g/dL Albumin/Globulin Ratio 0.90 L (1.3-2.0) mg/g Objective : Exam - General General Appearance: Cooperative, Mild Distress - Respiratory Respiratory Exam: Decreased Breath Sounds, Crackles - Cardiovascular Cardiovascular Exam: RRR, No Murmur, No Clicks, No Gallops - GI/Abdominal Additional GI/Abdominal Exam Details: Diffuse tenderness especially in the midline I can barely touch her belly bilateral flank pain on palpation pain would be at least 7 out of 10 - Extremities Additional Extremities Exam Details: Trace edema bilaterally Assessment and Plan - Patient Problems (1) Abdominal pain Current Visit: Yes Status: Acute (2) Pleural effusion Current Visit: Yes Status: Acute (3) Pyelonephritis Current Visit: Yes Status: Acute - Assessment / Plan Additional Assessment/Plan Details: #1 this is a very 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 and had one scheduled for this Tuesday her illness began last week she has some generalized malaise which started in her neck that she developed a migraine then later on Tuesday the profuse sweating for her sheets were drenched with nausea and vomiting she did not ever have increased urinary frequency or dysuria or any blood in the urine no diarrhea she tried to go to work on Tuesday still did not feel good and had a UA in [place] and was put on by mouth antibiotics which she never filled and was seen in the ER in [place] where she was diagnosed with pyelonephritis and admitted to the hospital she is on Zosyn. 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 Differential diagnosis could be pericarditis myocarditis CMV since her LFTs are slightly elevated thyroid disease I will order stat TSH free T4 CMV IgM IgG hepatitis panel EKG and echo are also obtain a CT scan of her chest with contrast to rule out PE I'll also discuss this with Dr. Griggs which also agrees with my plan I was just contacted that we do not have a hvac technician residential so we are unable to do the ultrasound of her heart but I will also do an ultrasound of her ovaries
[2016-12-16 13:35] LABS: FREE T4 (FREE THYROXINE) 1.03 ng/dL (0.93-1.71)
--- NOTE | 2016-12-16 14:13 | DI ---
US PELVIC COMPLETE (NON OB),12/16/2016 12:45 PM: Clinical History: Ascites Previous Exam: April 26, 2014 Findings: Multiple grayscale and color Doppler sonographic images are obtained transabdominally through the pel vis. The uterus measures 9.8 x 4.7 x 5.0 cm with an endometrial stripe measuring 8 mm. The ovaries are normal bilaterally containing a few maturing follicles. The right ovary measures 3.0 x 2.0 x 1.7 cm and the left ovary measures 3.3 x 2.0 x 3.6 cm. There is a large amount of ascites. The urinary bladder is unremarkable. Impression: Normal pelvic ultrasound.
--- NOTE | 2016-12-16 14:24 | DI ---
CT CTA CHEST NONCORONARY W/WO,12/16/2016 12:28 PM: Clinical History: Pleural effusions Previous Exam: CT abdomen pelvis performed December 15, 2016 Findings: Multiple helically acquired CT images are obtained through the chest following a CT chest angiogram p rotocol after intravenous administration of 65 cc of Isovue 300, and demonstrates no a small pericard ial effusion. There are large bilateral pleural effusions. There is also some diffuse pulmonary edema. The pulmonary arteries are normal and symmetric without filling defect or truncation to suggest pulmo nary embolism. Skeletal structures are unremarkable. The upper abdomen demonstrates a large amount of abdominal ascites. Impression: 1. No evidence of pulmonary embolism. 2. Diffuse pulmonary edema and bilateral pleural effusions.
--- NOTE | 2016-12-16 15:35 | DCSUMMARY ---
Hospitalization Summary Hospital Course: Final Discharge Diagnosis: Current Visit Problems Problem Status Priority Diagnosed Code Abdominal pain Acute R10.9 Pleural effusion Acute J90 Pyelonephritis Acute N12 Sepsis Acute A41.9 Urinary tract infectious disease Acute N39.0 Diagnostic Data, Laboratory Data, and Procedures of Signifigance: Laboratory Results 12/13/16 12/13/16 12/13/16 Range/Units 16:56 17:00 18:10 WBC 5.85 (4.8-10.8) 10^3/uL RBC 3.53 L (4.20-5.40) 10^6/uL Hgb 11.2 L (12.0-16.0) g/dL Hct 33.6 L (37.0-47.0) % MCV 95.2 (81-99) FL MCH 31.7 H (27-31) PG MCHC 33.3 (33-37) g/dL RDW Std Deviation 43.7 (39-50) fL RDW Coeff of [place] 13.1 (11.5-14.5) % Plt Count 204 (140-350) 10*3/uL MPV 9.3 (7.4-12.2) FL Immature Gran % (Auto) 0.2 (0-5) % Neut % (Auto) 73.8 (50-80) % Lymph % (Auto) 10.8 (10-50) % [place] % (Auto) 14.0 (5-15) % Eos % (Auto) 1.0 (0-8) % Baso % (Auto) 0.2 (0-1) % Immature Gran # (Auto) 0.01 10*3/UL Neut # (Auto) 4.32 10*3/UL Lymph # (Auto) 0.63 10*3/uL [place] # (Auto) 0.82 H (0.3-0.8) 10*3/UL Eos # (Auto) 0.06 10*3/UL Baso # (Auto) 0.01 10*3/UL Neutrophils % (Manual) (50-80) % Band Neutrophils % (0-10) % Lymphocytes % (Manual) (10-50) % Monocytes % (Manual) (0-12) % Eosinophils % (Manual) (0-8) % Basophils % (Manual) (0-1) % Metamyelocytes % Myelocytes % Promyelocytes % Blast Cells WBC Morphology Comment Normal morphology (NORM) Plt Morphology Comment Normal morphology (NORM) RBC Morph Comment Normal morphology (NORM) D-Dimer (0.00-0.59) mg/L Sodium 136 (135-145) meq/L Potassium 3.5 L (3.8-5.2) meq/L Chloride 103 (98-112) meq/L Carbon Dioxide 21 L (23-33) meq/L Anion Gap 12 (5-20) BUN 9 (7-22) mg/dL Creatinine 0.7 (0.50-1.20) mg/dL Estimated GFR > 60 (>60 ml/min/1.73m(2)) BUN/Creatinine Ratio 12.85 (6-20) Glucose 106 (78-110) mg/dL Calculated Osmolality 280.0 (267-292) mOsm/kg Lactic Acid 1.0 (0.70-2.10) MMOL/L Calcium 8.6 L (8.7-10.7) mg/dL Magnesium 1.6 (1.6-2.4) mg/dL Ferritin (12.00-336.70) ng/mL Total Bilirubin 0.3 (0.3-1.2) mg/dL Conjugated Bilirubin (0.0-0.3) MG/DL Unconjugated Bilirubin (0.0-1.1) mg/dL AST 39 (8-39) IU/L ALT 46 (9-52) IU/L Alkaline Phosphatase 65 (38-126) IU/L Total Creatine Kinase (30-136) IU/L Troponin I (< 0.040) ng/mL Total Protein 6.2 (6.1-8.0) g/dL Albumin 3.5 (3.5-4.8) g/dL Globulin 2.7 (2.50-4.10) g/dL Albumin/Globulin Ratio 1.20 L (1.3-2.0) mg/g Lipase (23-300) IU/L TSH (0.2700-4.2000) uIU/mL Free T4 (0.93-1.71) ng/dL Serum HCG, Qual Negative Ur Collection Type Voided specimen Urine Color Yellow Urine Clarity Cloudy (CLEAR) Urine pH 7.0 (5.0-8.5) Ur Specific [place] 1.010 (1.005-1.030) Urine Protein 100 (NEG) mg/dl Urine Glucose (UA) Negative (NEG) mg/dL Urine Ketones Negative (NEG) Urine Occult Blood Moderate H (NEG) Urine Nitrate Negative (NEG) Urine Bilirubin Negative (NEG) Urine Urobilinogen 0.2 (0.2) EU/dL Ur Leukocyte Esterase Moderate (NEG) Urine RBC 10-15 (NONE) /hpf Urine WBC 25-50 (NONE) Ur Squamous Epith Cells Few (NONE) Ur Renal Epithelial Cell None (NONE) Urine Crystals None Urine Bacteria None (NONE) Urine Casts None (NONE) Urine Mucus None (NONE) Urine Trichomonas None (NONE) Urine Yeast None (NONE) Ur Culture Indicated? Culture set 12/14/16 12/15/16 12/16/16 Range/Units 05:08 05:31 05:33 WBC 6.38 6.46 5.81 (4.8-10.8) 10^3/uL RBC 3.35 L 3.14 L 3.00 L (4.20-5.40) 10^6/uL Hgb 10.4 L 9.8 L 9.4 L (12.0-16.0) g/dL Hct 32.2 L 30.4 L 28.8 L (37.0-47.0) % MCV 96.1 96.8 96.0 (81-99) FL MCH 31.0 31.2 H 31.3 H (27-31) PG MCHC 32.3 L 32.2 L 32.6 L (33-37) g/dL RDW Std Deviation 44.3 45.4 44.1 (39-50) fL RDW Coeff of [place] 13.1 13.3 13.0 (11.5-14.5) % Plt Count 172 175 216 (140-350) 10*3/uL MPV 9.3 9.6 9.4 (7.4-12.2) FL Immature Gran % (Auto) 0.3 0.3 (0-5) % Neut % (Auto) 61.7 65.9 (50-80) % Lymph % (Auto) 19.3 18.9 (10-50) % [place] % (Auto) 17.1 H 13.3 (5-15) % Eos % (Auto) 1.4 1.4 (0-8) % Baso % (Auto) 0.2 0.2 (0-1) % Immature Gran # (Auto) 0.02 0.02 10*3/UL Neut # (Auto) 3.94 4.26 10*3/UL Lymph # (Auto) 1.23 1.22 10*3/uL [place] # (Auto) 1.09 H 0.86 H (0.3-0.8) 10*3/UL Eos # (Auto) 0.09 0.09 10*3/UL Baso # (Auto) 0.01 0.01 10*3/UL Neutrophils % (Manual) 77 (50-80) % Band Neutrophils % 2 (0-10) % Lymphocytes % (Manual) 21 (10-50) % Monocytes % (Manual) 0 (0-12) % Eosinophils % (Manual) 0 (0-8) % Basophils % (Manual) 0 (0-1) % Metamyelocytes % Not Reportable Myelocytes % Not Reportable Promyelocytes % Not Reportable Blast Cells Not Reportable WBC Morphology Comment Normal morphology Normal morphology Normal morphology (NORM) Plt Morphology Comment Normal morphology Normal morphology Normal morphology (NORM) RBC Morph Comment Normal morphology Normal morphology Normal morphology ( NORM) D-Dimer (0.00-0.59) mg/L Sodium 139 136 140 (135-145) meq/L Potassium 3.9 3.7 L 3.6 L (3.8-5.2) meq/L Chloride 109 108 109 (98-112) meq/L Carbon Dioxide 23 22 L 22 L (23-33) meq/L Anion Gap 7 6 9 (5-20) BUN 6 L 8 8 (7-22) mg/dL Creatinine 0.8 0.7 0.6 (0.50-1.20) mg/dL Estimated GFR > 60 > 60 > 60 (>60 ml/min/1.73m(2)) BUN/Creatinine Ratio 7.50 11.42 13.33 (6-20) Glucose 114 H 117 H 84 (78-110) mg/dL Calculated Osmolality 286.0 280.0 286.0 (267-292) mOsm/kg Lactic Acid (0.70-2.10) MMOL/L Calcium 7.7 L 7.4 L 7.3 L (8.7-10.7) mg/dL Magnesium (1.6-2.4) mg/dL Ferritin (12.00-336.70) ng/mL Total Bilirubin 0.3 0.4 (0.3-1.2) mg/dL Conjugated Bilirubin 0.00 (0.0-0.3) MG/DL Unconjugated Bilirubin 0 (0.0-1.1) mg/dL AST 84 H 41 H (8-39) IU/L ALT 88 H D 84 H (9-52) IU/L Alkaline Phosphatase 106 97 (38-126) IU/L Total Creatine Kinase (30-136) IU/L Troponin I (< 0.040) ng/mL Total Protein 5.5 L 5.3 L (6.1-8.0) g/dL Albumin 2.6 L 2.6 L (3.5-4.8) g/dL Globulin 2.7 (2.50-4.10) g/dL Albumin/Globulin Ratio 0.90 L (1.3-2.0) mg/g Lipase 28 (23-300) IU/L TSH (0.2700-4.2000) uIU/mL Free T4 (0.93-1.71) ng/dL Serum HCG, Qual Ur Collection Type Urine Color Urine Clarity (CLEAR) Urine pH (5.0-8.5) Ur Specific [place] (1.005-1.030) Urine Protein (NEG) mg/dl Urine Glucose (UA) (NEG) mg/dL Urine Ketones (NEG) Urine Occult Blood (NEG) Urine Nitrate (NEG) Urine Bilirubin (NEG) Urine Urobilinogen (0.2) EU/dL Ur Leukocyte Esterase (NEG) Urine RBC (NONE) /hpf Urine WBC (NONE) Ur Squamous Epith Cells (NONE) Ur Renal Epithelial Cell (NONE) Urine Crystals Urine Bacteria (NONE) Urine Casts (NONE) Urine Mucus (NONE) Urine Trichomonas (NONE) Urine Yeast (NONE) Ur Culture Indicated? 12/16/16 12/16/16 12/16/16 Range/Units 12:48 13:37 14:05 WBC (4.8-10.8) 10^3/uL RBC (4.20-5.40) 10^6/uL Hgb (12.0-16.0) g/dL Hct (37.0-47.0) % MCV (81-99) FL MCH (27-31) PG MCHC (33-37) g/dL RDW Std Deviation (39-50) fL RDW Coeff of [place] (11.5-14.5) % Plt Count (140-350) 10*3/uL MPV (7.4-12.2) FL Immature Gran % (Auto) (0-5) % Neut % (Auto) (50-80) % Lymph % (Auto) (10-50) % [place] % (Auto) (5-15) % Eos % (Auto) (0-8) % Baso % (Auto) (0-1) % Immature Gran # (Auto) 10*3/UL Neut # (Auto) 10*3/UL Lymph # (Auto) 10*3/uL [place] # (Auto) (0.3-0.8) 10*3/UL Eos # (Auto) 10*3/UL Baso # (Auto) 10*3/UL Neutrophils % (Manual) (50-80) % Band Neutrophils % (0-10) % Lymphocytes % (Manual) (10-50) % Monocytes % (Manual) (0-12) % Eosinophils % (Manual) (0-8) % Basophils % (Manual) (0-1) % Metamyelocytes % Myelocytes % Promyelocytes % Blast Cells WBC Morphology Comment (NORM) Plt Morphology Comment (NORM) RBC Morph Comment (NORM) D-Dimer 12.08 H (0.00-0.59) mg/L Sodium (135-145) meq/L Potassium (3.8-5.2) meq/L Chloride (98-112) meq/L Carbon Dioxide (23-33) meq/L Anion Gap (5-20) BUN (7-22) mg/dL Creatinine (0.50-1.20) mg/dL Estimated GFR (>60 ml/min/1.73m(2)) BUN/Creatinine Ratio (6-20) Glucose (78-110) mg/dL Calculated Osmolality (267-292) mOsm/kg Lactic Acid (0.70-2.10) MMOL/L Calcium (8.7-10.7) mg/dL Magnesium (1.6-2.4) mg/dL Ferritin 82.90 (12.00-336.70) ng/mL Total Bilirubin (0.3-1.2) mg/dL Conjugated Bilirubin (0.0-0.3) MG/DL Unconjugated Bilirubin (0.0-1.1) mg/dL AST (8-39) IU/L ALT (9-52) IU/L Alkaline Phosphatase (38-126) IU/L Total Creatine Kinase 33 (30-136) IU/L Troponin I < 0.012 (< 0.040) ng/mL Total Protein (6.1-8.0) g/dL Albumin (3.5-4.8) g/dL Globulin (2.50-4.10) g/dL Albumin/Globulin Ratio (1.3-2.0) mg/g Lipase (23-300) IU/L TSH 1.96 (0.2700-4.2000) uIU/mL Free T4 1.03 (0.93-1.71) ng/dL Serum HCG, Qual Ur Collection Type Urine Color Urine Clarity (CLEAR) Urine pH (5.0-8.5) Ur Specific [place] (1.005-1.030) Urine Protein (NEG) mg/dl Urine Glucose (UA) (NEG) mg/dL Urine Ketones (NEG) Urine Occult Blood (NEG) Urine Nitrate (NEG) Urine Bilirubin (NEG) Urine Urobilinogen (0.2) EU/dL Ur Leukocyte Esterase (NEG) Urine RBC (NONE) /hpf Urine WBC (NONE) Ur Squamous Epith Cells (NONE) Ur Renal Epithelial Cell (NONE) Urine Crystals Urine Bacteria (NONE) Urine Casts (NONE) Urine Mucus (NONE) Urine Trichomonas (NONE) Urine Yeast (NONE) Ur Culture Indicated? 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 and had one scheduled for this Tuesday her illness began last week she has some generalized malaise which started in her neck that she developed a migraine then later on Tuesday the profuse sweating for her sheets were drenched with nausea and vomiting she did not ever have increased urinary frequency or dysuria or any blood in the urine no diarrhea she tried to go to work on Tuesday still did not feel good and had a UA in [place] and was put on by mouth antibiotics which she never filled and was seen in the ER in [place] where she was diagnosed with pyelonephritis and admitted to the hospital she is on Zosyn. 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 Differential diagnosis could be pericarditis myocarditis CMV since her LFTs are slightly elevated thyroid disease I will order stat TSH free T4 CMV IgM IgG hepatitis panel EKG and echo are also obtain a CT scan of her chest with contrast to rule out PE I'll also discuss this with Dr. Griggs which also agrees with my plan patient will be transferred to [facility] I discussed the case with the Kayden Baeza who accepted the patient. I also discussed the case with the patient herself which agreed with the transfer. Relatives were at the bedside which also agreed with my plan QUESTIONS were answered On the date of discharge, the patient was examined: Gen.: No acute distress, alert, nontoxic Heart: Regular rate and rhythm, no murmurs, clicks, gallops, or rubs Lungs: Decreased breath sounds at the bases few crackles Abdomen/GI: Tender to mild touch diffusely Musculoskeletal/extremities: No clubbing, cyanosis, or edema Vitals reviewed and are listed below Vital Signs (24 hrs) Temp Pulse Resp BP Pulse Ox 12/16/16 11:55 97.7 F 91 18 102/53 98 12/16/16 08:19 98.3 F 58 L 18 108/60 95 12/16/16 07:00 54 L 12/16/16 05:35 93 12/16/16 04:41 98.4 F 54 L 20 117/69 92 12/16/16 00:34 98.3 F 52 L 20 114/47 94 12/15/16 20:32 98.6 F 56 L 12 116/64 91 12/15/16 16:48 98 F 54 L 16 97/52 92 Assessment and Plan: 1. As per discharge assessments above 2. Disposition: Transferred to [facility] 3. Condition on discharge, stable and improved. 4. Diet: regular diet 5. Activities: resume normal activities 6. Follow-Up: 1. PCP 2. 7. Medications at the Time of Discharge: Active Medications Generic Name Dose Route Start Last Admin Trade Name Freq PRN Reason Stop Dose Admin Acetaminophen 650 mg 12/13/16 21:34 12/16/16 10:30 Tylenol PO 650 mg Q6H PRN Administration Pain Hydromorphone HCl 1 mg 12/16/16 12:01 12/16/16 12:06 Dilaudid Inj IVP 1 mg Q2H PRN Administration Pain Sodium Chloride 25 mls @ 200 mls/hr 12/13/16 21:27 Normal Saline 0.9% IV .Post Infusion PRN No Primary IV for Flush ONLY Sodium Chloride 1,000 mls @ 100 mls/hr 12/15/16 11:00 12/16/16 14:44 Normal Saline PRIMARY IV 100 mls/hr .Q10H RENA Administration Piperacillin Sod/Tazobactam 100 mls @ 200 mls/hr 12/15/16 15:00 12/16/16 14:43 Sod 3.375 gm/ Sodium Chloride IV 200 mls/hr Q6H RENA Administration Pantoprazole Sodium 40 mg/ 10 mls @ 5 mls/min 12/15/16 21:00 12/16/16 09:35 Sodium Chloride IVP 5 mls/min BID RENA Administration Lidocaine HCl 0.5 ml 12/13/16 21:27 Lidocaine Buffered Inj SUBD ONCE PRN IV Starts Ondansetron HCl 4 mg 12/13/16 21:27 12/16/16 04:40 Zofran Inj IVP 4 mg Q6H PRN Administration NAUSEA / VOMITING Oxycodone/Acetaminophen 1 - 2 tab 12/14/16 08:01 12/16/16 04:40 Percocet 5/325 Tab PO 2 tab Q4H PRN Administration Pain Psyllium Hydrophilic Mucilloid 1 packet 12/14/16 09:00 Metamucil 3.4 Gm Packet PO DAILY PRN CONSTIPATION Sertraline HCl 50 mg 12/14/16 09:00 12/16/16 09:34 Zoloft PO 50 mg DAILY RENA Administration Sodium Chloride 5 - 20 ml 12/13/16 21:27 12/14/16 11:41 Saline Flush IVP 10 ml BID PRN Administration Flush Home Medications Medication Instructions Recorded Confirmed Type Multivitamin Tab 1 tab PO DAILY tab 08/28/14 12/13/16 History Plus Tab Sertraline HCl Zoloft 1 tab PO DAILY #30 tab 11/01/16 12/13/16 Clinic Sulfamethoxazole/Trimethoprim 1 tab PO BID #14 tab 12/13/16 12/13/16 Clinic Sulfamethoxazole-Tmp Ds Tablet 8. Time, care, counseling and coordination of care for this discharge is greater than 30 minutes. Exam - Vitals Vital Signs: Vital Signs Temperature 97.7 F Temperature Source Oral Pulse Rate [Pulse Oximeter 91 Right] Pulse Rate 93 Respiratory Rate 18 Blood Pressure [Left Arm] 102/53 Blood Pressure 112/51 Pulse Ox 98 Oxygen Flow Rate 1 Oxygen Delivery Method Nasal Cannula Height 5 ft 5 in Weight 74.026 kg Patient Problems - Patient Problem List (1) Abdominal pain Current Visit: Yes Status: Acute (2) Pleural effusion Current Visit: Yes Status: Acute (3) Pyelonephritis Current Visit: Yes Status: Acute
[2016-12-17 11:06] LABS: HEP B CORE IGM ANTIBODY Negative (Negative); HEPATITIS A IGM Negative (Negative); HEPATITIS B SURFACE AG Negative (Negative)
== END 2016-12-16 16:01 | disposition short-term general hospital (02) | DRG 689 ==
LOC: ER 16:29 → MED/SURG 20:27
PROVIDERS: ADMIT Internal Medicine; ATTEND Internal Medicine
DX: N12 Tubulo-interstitial nephritis, not specified as acute or chronic (principal); A41.9 Sepsis, unspecified organism; J90 Pleural effusion, not elsewhere classified; N39.0 Urinary tract infection, site not specified
CPT/HCPCS: 36415; 71020; 71275; 74177; 74178; 76705; 76856; 80048; 80053; 80076; 81001; 81003; 82550; 82728; 83540; 83550; 83605; 83690; 83735; 84439; 84443; 84484; 84703; 85007; 85025; 85379; 86644; 86645; 86705; 86709; 86803; 87040; 87077; 87088; 87186; 87340; 87804; 94761; 96361; 96365; 96375; 96376; 99284; J0692; J0696; J1170; J1885; J1940; J2270; J2405; J2543; J3490; J7030; J7050